=== PATIENT | male | born 1975 | race Caucasian/White ===

== ENCOUNTER 2020-03-08 03:26 | Emergency (ER) | payer MEDICAID, SELFPAY ==
[2020-03-08 03:34] VITALS: BP 148/90; PULSE 111; RESP 16; TEMP 36.8; O2SAT 99; BMI 23.6
--- NOTE | 2020-03-08 03:49 | XR_ITS ---
WS: [id number] XR hand LT min 3V* [id number] REASON FOR EXAM: Injury FINDINGS: The joint spaces of the left hand are intact. No fracture is identified. There is an irregular radiopaque soft tissue density adjacent to the distal head of the second metaca rpal. XR/XR hand LT min 3V* [id number] IMPRESSION: Presumed foreign body in the soft tissues as above. Correlate with site of inju ry.
--- NOTE | 2020-03-08 03:58 | W.ED.EXTPRO ---
HPI - Extremity Problem General: Chief complaint: Extremity Problem,Nontraumatic Stated complaint: Left Hand Infection Time Seen by Provider: 03/08/20 03:40 Source: patient and family Mode of arrival: ambulatory Limitations: no limitations History of Present Illness: HPI Narrative: Mariusz is a 44-year-old male who comes in complaining of a infected incision to his left hand. He states 6 weeks ago he cut his left hand with a chainsaw. Patient is very scattered in his history but it sounds as though he was seen in a orthopedist office, Dr. Hendrix in [place] and has done so several times. There is concern of a tendon laceration and continued ongoing infection. The patient initially had his laceration sutured but he still has no function with that finger and he has continued drainage and redness and swelling around the area. Tonight the patient got more pain and had more drainage from his hand than usual. Patient just did not feel like this was getting better as it should and he stated I want a second opinion . Patient has no systemic signs symptoms such as fever, chills, nausea or vomiting but still has increased pain and severely limited range of motion in that joint. The laceration appears as though it was across the index and middle metacarpal phalangeal joints but it is primarily at the index metacarpal phalangeal joint but it appears infected and that is where the active drainage is coming from. Associated symptoms: Deny chest pain, fever(s) or rash Review of Systems Const: Denies: fever(s) Eyes: Denies: change in vision or blurry vision ENMT: Denies: throat pain, hoarseness or swelling of lips/tongue Card: Denies: chest pain, palpitations, syncope, pre-syncope or dyspnea on exertion Resp: Denies: dyspnea, productive cough, non-productive cough, wheezing, change in phlegm color or hemoptysis GI: Denies: abdominal pain, nausea, vomiting or diarrhea : Denies: flank pain, dysuria, urinary frequency or urinary urgency Musc: Denies: neck pain or back pain Skin/Breast: Denies: rash or pruritus Neuro: Denies: headache(s), numbness in extremities, weakness in extremities or dizziness Fly/Lymph: Denies: easy bruising, easy bleeding, petechiae or purpura All/Imm: Denies: urticaria or throat swelling PFSH ED PFSH: Medical History (Updated 03/08/20 @ 05:09 by Landy Valiente) No pertinent past medical history Surgical History (Updated 03/08/20 @ 04:00 by Landy Valiente) No pertinent past surgical history Physical Exam Const: COMMON NORMALS: no acute distress, patient oriented x3, no limitations and alert GENERAL APPEARANCE: cooperative HENMT: COMMON NORMALS: normocephalic, atraumatic, external ears normal, EAC's normal and Normal external nose present HEAD & SCALP: normal to inspection, normocephalic and atraumatic FACE & SINUS: normal facial exam and face symmetric NOSE: Normal external nose present and Normal nares present EXTERNAL EAR: Yes external ears normal EXTERNAL AUDITORY CANAL: EAC's normal MOUTH: Normal oral and palatal mucosa present, lip normal and tongue normal Eye: COMMON NORMALS: Equal, round and reactive pupils present and conjunctivae normal GENERAL EYE: appearance normal, both eyes and all related structures ALIGNMENT: Yes alignment normal PERIORBITAL: periorbital findings normal EYELID: eyelids normal CONJUNCTIVA: Yes conjunctivae normal SCLERA: sclerae normal PUPIL: Yes Equal, round and reactive pupils present Neck/C-Spine: COMMON NORMALS: full ROM, no lymphadenopathy, supple, no meningeal signs and no JVD GENERAL: Yes normal visual inspection and Yes trachea midline Chest: COMMONS NORMALS: normal inspection of the chest and normal palpation of entire chest wall Resp: COMMON NORMALS: normal respiratory effort, No retractions, No use of accessory muscles and clear to auscultation bilaterally EFFORT & INSPECTION: Yes able to speak in complete sentences and Yes symmetric chest movement AUSCULTATION: clear to auscultation bilaterally, no crackles, no rales, no rhonchi and no wheezes Cardio: COMMON NORMALS: no JVD, regular rate, regular rhythm, S1 normal heart sound present and S2 normal heart sound present RATE: regular rate RHYTHM: regular rhythm HEART SOUNDS: S1 normal heart sound present, S2 normal heart sound present, no click, no gallops, no murmurs and no rubs GI: COMMON NORMALS: Soft to palpation and No hepatosplenomegaly present PALPATION: Yes Soft to palpation, No Tenderness to palpation present (GI), No Guarding due to palpation present (GI), No Rigid due to palpation, Yes No hepatosplenomegaly present, No Hernia present, No Palpable mass present and No Pulsatile mass present : COMMON NORMALS: Yes no CVA tenderness BLADDER/KIDNEY EXAM: Yes no CVA tenderness Back/Pelvis: COMMON NORMALS: no CVA tenderness, thoracic and lumbar spine normal to inspection, no thoracic nor lumbar tenderness and thoraco-lumbar ROM normal Extremity: NARRATIVE EXTREMITY EXAM: Left index finger metacarpophalangeal joint with open laceration with active drainage. There is surrounding cellulitis and swelling and edema. Neuro: COMMON NORMALS: patient oriented x3, CN's II-XII intact bilaterally, moves all extremities, no focal motor deficits and no sensory deficits noted SENSORIUM/ORIENTATION: Yes alert MENINGEAL SIGNS: Yes no meningeal signs SPEECH: speech normal Psych: COMMON NORMALS: mental status grossly normal, Normal thought process present, cooperative, normal affect, speech normal and activity/motor behavior normal SPEECH: Yes normal speech THOUGHT PROCESS: Normal thought process present Skin: COMMON NORMALS: no rashes or lesions noted, turgor normal, no jaundice, no petechiae and no mottling GENERAL SKIN EXAM: no rashes or lesions noted and turgor normal Procedures Abscess I/D Site: hand Side (if applicable): left Local Anesthetic: lidocaine 1% Amount of anesthesia used (mL): 5 Technique: incised with #11 blade Amount of fluid expressed (mL): 10 Irrigation: Yes Packing used?: iodoform Course Vital Signs: Vital signs: Vital Signs Temperature 98.2 F 03/08/20 03:34 Pulse Rate 103 H 03/08/20 05:22 Respiratory Rate 20 H 03/08/20 05:22 Blood Pressure 130/77 03/08/20 05:22 Pulse Oximetry 99 03/08/20 05:22 MDM - Extremity (Nontraumatic) MDM Narrative: Medical decision making narrative: The case was reviewed with Dr. Junior a hand subspecialist out of [facility]. She would like me to open the area up and obtain wound cultures. She asked the patient be changed to clindamycin as antibiotic and she is going to see the patient in her office tomorrow for reevaluation. I will go and place the packing and wash the joint/wound out per her instructions and have the patient keep the dressing on till he sees her on . This plan and follow-up was reviewed with the patient and his at length and they both agree that they can make this appointment and have no questions or concerns. Dr. Junior took the patient's information and her office is going to call the patient later this morning to arrange the follow-up. Imaging Data^: XR Right Hand: Attestation: I personally reviewed and interpreted this imaging study as follows: My impression: Retained foreign body versus bone fragment present near the joint. Bone itself looks move without any evidence of fracture, callus or healing. No obvious air in the joint. Discharge Plan Discharge Patient Disposition: Home Clinical Impression: Abscess Infected finger laceration Qualifiers: Encounter type: subsequent encounter Qualified Code(s): S61.219D - Laceration without foreign body of unspecified finger without damage to nail, subsequent encounter Condition: Stable Prescriptions: New Cleocin HCl 150 mg capsule 300 mg PO Q6H 10 Days Qty: 80 RF: 0 Discharge Orders: Discharge ED (Routine); Ordered 03/08/20 Ordered By: Landy Valiente Discharge Diet: Usual diet Discharge Activity: Limit activity as instructed Patient Instructions: Cellulitis (ED), Abscess (ED) Activity Restrictions/Additional Instructions: Please return to the ER immediately for any of the signs or symptoms listed on your discharge instruction sheets, worsening/changing of your symptoms, you are not getting better as quickly as expected, or for ANY other cause or concerns. Dr. Junior will have her office call you later today for an appointment to be seen tomorrow. Keep your wound clean and dry and the dressing on until you are seen by her. Coding Level of Care Code ED Hot Plate Plywood Press Offbearer for Luda Fwd Exam Comprehensive
[2020-03-08 04:36] VITALS: BP 123/83; PULSE 96; RESP 22; O2SAT 97
[2020-03-08] MEDS: lidocaine 1% INJ 20 mL INJECTION (04:40)
[2020-03-08] MEDS: ondansetron 4 MG Tablet 8 MG PO (04:45)
[2020-03-08] MEDS: clindamycin 150 mg Capsule 450 MG PO (05:09)
--- NOTE | 2020-03-08 05:17 | PC.NURSE ---
I agree with the assessment
[2020-03-08 05:22] VITALS: BP 130/77; PULSE 103; RESP 20; O2SAT 99
== END 2020-03-08 05:20 | disposition home or self-care (01) ==
PROVIDERS: Emergency Provider Emergency Medicine
DX: L02.512 Cutaneous abscess of left hand (principal); S61.219A Laceration without foreign body of unspecified finger without damage to nail, initial encounter; W29.3XXA Contact with powered garden and outdoor hand tools and machinery, initial encounter
CPT/HCPCS: 10060; 12345; 73130; 87070; 99281; 99283; Q0162